=== PATIENT | female | born 1940 | race Hispanic/Latino ===

== ENCOUNTER 2018-11-29 10:20 | Day surgery (SDC) | payer MEDICARE ==
[2018-11-29] MEDS ORDERED: NACL 0.9% 1000 ML 1,000 ML ONE (11:19)
[2018-11-29] MEDS ORDERED: XYLOCAINE MPF 2% ONE (11:30)
--- NOTE | 2018-11-29 12:59 | Operative Report ---
Operative Report Operative Report: Date: 11/29/2018 Operative Report: Date of procedure: 11/29/2018 Procedure: Esophagogastroduodenoscopy with multiple mucosal biopsies. Attending physician: Santosh Bolanos MD Fruit Dumper: Satnosh Bolanos MD Indication: Patient is a 78 -year-old female who presented with a history of recurrent epigastric pain, heartburn, indigestion and dysphagia. She also has early satiety. Patient has a past history of peptic ulcer disease. An upper endoscopy is done to assess patient, so that treatment may be directed based on the findings. Consent: Informed consent was obtained after advising the patient and family regarding nature of this procedure, its indications, potential benefits as well as possible complications including but not limited to bleeding perforation and adverse reaction to medication, infection as well as other cardiopulmonary complications. An informed written and verbal consent was then obtained after due opportunity was provided for questions and answers. Monitoring: Patient was monitored continuously with pulse oximetry and electrocardiographic recordings as well as blood pressure recordings. Vital signs remained stable throughout this procedure with no untoward events. Preoperative assessment: Patient was assessed immediately prior to this procedure for capacity to tolerate monitored anesthesia care and moderate sedation as well as general anesthesia. Patient's ASA classification is 3, Mallampati class is 2, Hyomental distance is 3. Instrument: Olympus video endoscope: [id number] [id number] Medications: Propofol given intravenously in divided doses. For details please refer to anesthesia records. Description of procedure: Patient was placed in the left lateral decubitus position after achieving sedation, the endoscope was introduced into the esophagus under direct vision. It was then advanced beyond the esophagus into the stomach and then beyond the stomach into the duodenum and to the second portion of the duodenum. It was subsequently withdrawn with careful inspection of all mucosal surfaces with the following findings. Findings: Patient had an irregular Z line at 38 cm. There was a sliding hiatal hernia seen on entry into the stomach. The patient has Zeinab esophagitis of moderate severity Patient had multiple gastric antral erosions with erythema seen. No ulcers are seen . Biopsies were obtained from the antrum for histopathology. The duodenum was normal to the second portion. Impression: Irregular Z line. Zeinab esophagitis Sliding hiatal hernia. Multiple gastric antral erosions Plan: Treat Zeinab esophagitis with fluconazole for 14 days. Patient given prescription. Continue treatment with proton pump inhibitors. Follow pathology report. Direct additional treatment based on the pathology report. Patient will be observed clinically. Additional recommendations will be made follow-up.
[2018-11-29] MEDS ORDERED: NACL 0.9% 1000 ML 1,000 ML IV SCH (13:00)
--- NOTE | 2018-11-29 13:00 | Discharge Summary ---
Short Stay Discharge Plan Activity: advance as tolerated Diet: regular Follow up with: LO VAZQUEZ MD [Primary Care Provider] - 7 Days
[2018-11-29] MEDS ORDERED: DIPRIVAN 10 MG/ML IV ONE (13:05)
--- NOTE | 2018-11-29 13:41 | Operative Report ---
Operative Report Operative Report: Operative Report: Date of procedure: 11/29/2018 Procedure: Esophagogastroduodenoscopy with multiple mucosal biopsies, Wire guided esophageal dilation using a savory dilator. Attending physician: Santosh Bolanos MD Flower Planter: Santosh Bolanos MD Indication: Patient is a 78 -year-old female who presented with a history of recurrent epigastric pain, heartburn, indigestion and dysphagia. An upper endoscopy is done to assess patient, so that treatment may be directed based on the findings. Consent: Informed consent was obtained after advising the patient and family regarding nature of this procedure, its indications, potential benefits as well as possible complications including but not limited to bleeding perforation and adverse reaction to medication, infection as well as other cardiopulmonary complications. An informed written and verbal consent was then obtained after due opportunity was provided for questions and answers. Monitoring: Patient was monitored continuously with pulse oximetry and electrocardiographic recordings as well as blood pressure recordings. Vital signs remained stable throughout this procedure with no untoward events. Preoperative assessment: Patient was assessed immediately prior to this procedure for capacity to tolerate monitored anesthesia care and moderate sedation as well as general anesthesia. Patient's ASA classification is 3, Mallampati class is 2, Hyomental distance is 3. Instrument: Olympus video endoscope: [id number] [id number] Medications: Propofol given intravenously in divided doses. For details please refer to anesthesia records. Description of procedure: Patient was placed in the left lateral decubitus position after achieving sedation, the endoscope was introduced into the esophagus under direct vision. It was then advanced beyond the esophagus into the stomach and then beyond the stomach into the duodenum and to the second por tion of the duodenum. It was subsequently withdrawn with careful inspection of all mucosal surfaces with the following findings. Findings: The esophagus was very tortuous . Patient had an irregular Z line at 37 cm. There was a sliding hiatal hernia seen on entry into the stomach. Patient had multiple gastric antral erosions with erythema . Biopsies were obtained from the antrum for histopathology. The duodenum was normal to the second portion. A savory guidewire was introduced and a 45 [place]ien savory dilator was passed over the esophagus successfully. Patient tolerated procedure well with no untoward events. After completing the procedure, patient was taken to the recovery room. Impression: Irregular Z line. Sliding hiatal hernia. Tortuous esophagus status post wire-guided savory dilation with the 45 Nigerien savory dilator. Multiple gastric antral erosions Plan: Continue treatment with proton pump inhibitors. Observe Patient Clinically for Improvement in Her Dysphagia Symptoms. Follow pathology report. Direct additional treatment based on the pathology report. Patient will be observed clinically. Additional recommendations will be made follow-up.
[2018-11-29 14:33] VITALS: BP 121/71
--- NOTE | 2018-11-29 16:31 | Anesthesia Consultation ---
Anesthesia Consult and Med Hx Date of service: 11/29/18 - Airway Anesthetic Teeth Evaluation: Dentures ROM Head & Neck: Adequate Mental/Hyoid Distance: Adequate Mallampati Class: Class II Intubation Access Assessment: Probably Good - Pulmonary Exam CTA: Yes - Cardiac Exam Cardiac Exam: RRR - Pre-Operative Health Status ASA Pre-Surgery Classification: ASA2 Proposed Anesthetic Plan: MAC - Pulmonary Hx Respiratory Symptoms: No - Cardiovascular System Hx Hypertension: No Hx Heart Attack/AMI: No Hx Percutaneous Transluminal Coronary Angioplasty (PTCA): No - Central Nervous System CVA: No Hx Psychiatric Problems: Yes (dep/anx) - Gastrointestinal Hx Ulcer: Yes Hx Gastroesophageal Reflux Disease: Yes - Endocrine Hx Renal Disease: No Hx Liver Disease: No Hx Non-Insulin Dependent Diabetes: Yes (diet controlled) Hx Thyroid Disease: No - Other Systems Hx Cancer: Yes (hx cervical ca) Hx Obesity: No
--- NOTE | 2018-11-29 16:31 | Anesthesia Day of Surgery ---
Anesthesia Day of Surgery - Day of Surgery Patient Examined: Yes Patient H&P Reviewed: Yes Patient is NPO: Yes
== END 2018-11-29 10:21 | disposition home or self-care (01) ==
LOC: GIO 10:20
PROVIDERS: ATTEND Internal Medicine Gastroenterology
DX: K30 Functional dyspepsia (principal); K44.9 Diaphragmatic hernia without obstruction or gangrene; K31.89 Other diseases of stomach and duodenum; K21.9 Gastro-esophageal reflux disease without esophagitis; E11.9 Type 2 diabetes mellitus without complications; M19.90 Unspecified osteoarthritis, unspecified site; F32.9 Major depressive disorder, single episode, unspecified; F41.9 Anxiety disorder, unspecified; Z79.899 Other long term (current) drug therapy; Z88.0 Allergy status to penicillin; Z98.41 Cataract extraction status, right eye; Z98.42 Cataract extraction status, left eye; E78.00 Pure hypercholesterolemia, unspecified; Z90.49 Acquired absence of other specified parts of digestive tract; Z85.89 Personal history of malignant neoplasm of other organs and systems; Z90.710 Acquired absence of both cervix and uterus; Z88.2 Allergy status to sulfonamides; Z98.890 Other specified postprocedural states; Z88.8 Allergy status to other drugs, medicaments and biological substances
CPT/HCPCS: 43239; 43248; 88305; 88342; J2704; J7030; C1769